=== PATIENT | female | born 1965 | race Caucasian/White ===

== ENCOUNTER → 2023-11-28 10:20 | Outpatient (REF) | payer BC, SELFPAY | LOC: DHCBS MAIN 10:20 | PROVIDERS: ATTENDING PHYSICIAN Internal Medicine Cardiovascular Disease; FAMILY PHYSICIAN Physician Assistant | DX: I25.10 Atherosclerotic heart disease of native coronary artery without angina pectoris (principal) | CPT/HCPCS: 93306 ==